=== PATIENT | male | born 2000 | race Caucasian/White ===

== ENCOUNTER 2022-10-25 07:11 | Emergency (ER) | payer OTHER, BC ==
[2022-10-25] MEDS ORDERED: Ketorolac Tromethamine 30 MG/ML VIAL ONE (08:34)
[2022-10-25] MEDS ORDERED: Cyclobenzaprine 10 MG TAB ONE (08:35)
== END 2022-10-25 09:02 | disposition home or self-care (01) ==
LOC: CSHERS 07:11
DX: S06.9X1A Unspecified intracranial injury with loss of consciousness of 30 minutes or less, initial encounter (principal); S16.1XXA Strain of muscle, fascia and tendon at neck level, initial encounter; S00.03XA Contusion of scalp, initial encounter; W01.10XA Fall on same level from slipping, tripping and stumbling with subsequent striking against unspecified object, initial encounter
CPT/HCPCS: 70450; 72125; 96372; J1885